=== PATIENT | female | born 1995 | race Caucasian/White ===

== ENCOUNTER 2017-04-27 06:57 | Emergency (ER) | payer OTHER ==
[~2017-04-27] VITALS: Ht 162.6 cm; Wt 62.7 kg
[2017-04-27 06:59] VITALS: Ht 162.6 cm; Wt 62.7 kg
[2017-04-27] MEDS ORDERED: BCPILLS PO (07:11)
[2017-04-27] MEDS ORDERED: MoRPHine SULFATE 4 MG/ML 1 ML CARP\\VIAL IV STA (07:25)
[2017-04-27] MEDS ORDERED: SODIUM CHLORIDE 0.9% 1000ML 1,000 ML IV STA (07:25)
--- NOTE | 2017-04-27 07:46 | EMERGENCY ROOM VISIT NOTE ---
History First contact with patient: 07:04 Chief Complaint: ABDOMINAL PAIN Stated Complaint: HEAVY BLOOD FLOW, SEVERE STOMACH PAIN, BODY PAIN History of Present Illness The patient is a 21 year old female who presents to the Emergency Room with complaints of abdominal cramping and heavy vaginal bleeding. She has a history of PCO as and states that she has had this problem in the past that was usually rectified by taking oral contraceptives. She states that she had been off of her oral contraceptives for about 9 months, but started to have abnormal bleeding in January, so after discussing with her on site property manager back home and she has restarted the oral contraceptives. She states she was initially doing well but about a week ago she began to have breakthrough bleeding. 3 days ago she began to have some lower abdominal cramping which has gotten progressively worse and she has had some heavy bleeding since yesterday. She has not discussed this with her on site property manager. She states she is scheduled to establish care with a new provider in this area, but does not have an appointment until June 21. She denies any fevers or chills, vomiting, back pain, diarrhea, dysuria or urinary frequency. She states she is sexually active, but is not concerned for sexual transmitted infections and denies . Review of Systems A complete 10 point review of systems was reviewed with the patient with pertinent positives and negatives as per history of present illness. All else were negative. Past Medical/Surgical History PCOS, iron deficiency anemia Social History Smoking Status: Never Smoker Alcohol Use: occasionally Drug Use: none Occupation Status: [email or web address] student Current/Historical Medications Scheduled Control Pills ( Control Pills), 1 TAB PO DAILY Naproxen (Naprosyn), 500 MG PO BID Allergies NKDA Physical Exam Vital Signs Date Time Temp Pulse Resp B/P (MAP) Pulse Ox O2 Delivery O2 Flow Rate FiO2 04/27/17 13:31 65 18 106/72 04/27/17 13:08 69 16 103/68 04/27/17 11:14 67 16 104/69 97 Room Air 04/27/17 09:24 99 18 103/58 100 Room Air 04/27/17 07:54 37.2 69 18 121/90 04/27/17 06:59 36.7 98 18 124/85 97 Room Air Physical Exam CONSTITUTIONAL: No acute distress. Well hydrated. Well appearing and well nourished. Alert and oriented X 4 with normal affect. No pallor. HEENT: Normocephalic, atraumatic. Pupils equal, round and reactive to light, EOMI. TMs normal. Pharynx normal. Moist mucous membranes. NECK: Supple, full active range of motion without discomfort. RESPIRATORY: Clear to auscultation bilaterally with no wheezing, crackles, rhonchi or stridor. Equal expansion bilaterally. CARDIOVASCULAR: Regular rate and rhythm with no murmurs, rubs or gallops. Normal peripheral perfusion. No edema. GASTROINTESTINAL: Diffusely tender in the bilateral lower quadrants and suprapubic region, no rebound tenderness or guarding. Soft, nondistended. Bowel sounds present in all quadrants. MUSCULOSKELETAL: Full range of motion of all joints without discomfort. INTEGUMENTARY: No rash or other significant dermatologic conditions noted. NEUROLOGIC: Cranial nerves II-XII grossly intact. No focal neurologic deficits noted. Medical Decision & Procedures ER Provider Diagnostic Interpretation: PELVIC COMPLETE NON OB HISTORY: 21 years-old Female , acute left-sided pelvic pain. Initial exam. COMPARISON: None available. TECHNIQUE: Multiple real-time sonographic images of the pelvic structures were obtained transabdominally and transvaginally assessing grayscale appearance, color and spectral flow. FINDINGS: TRANSABDOMINAL: Anteflexed uterus is seen, 6.1 x 2.5 x 3.6 cm. Urinary bladder appears collapsed. TRANSVAGINAL: Endometrium is seen, 1.4 cm and appears mildly heterogeneous. No intrarenal mass lesion identified. No significant free pelvic fluid. Right ovary measures 2.9 x 1.7 x 1.6 cm and is unremarkable with arterial inflow documented. Left ovary measures 2.4 x 1.8 x 1.4 cm with arterial inflow documented. IMPRESSION: 1. Normal sonographic appearance of the ovaries without evidence of torsion. 2. Mildly heterogeneous appearance of the endometrium, may reflect hemorrhagic debris. 3. Uterus is otherwise unremarkable. Laboratory Results 04/27/17 07:48 Red Blood Count 4.22, Mean Corpuscular Volume 84.1, Mean Corpuscular Hemoglobin 28.7, Mean Corpuscular Hemoglobin Concent 34.1, Mean Platelet Volume 9.4, Neutrophils (%) (Auto) 58.2, Lymphocytes (%) (Auto) 30.7, Monocytes (%) (Auto) 7.5, Eosinophils (%) (Auto) 2.5, Basophils (%) (Auto) 1.0, Neutrophils # (Auto) 4.25, Lymphocytes # (Auto) 2.24, Monocytes # (Auto) 0.55, Eosinophils # (Auto) 0.18, Basophils # (Auto) 0.07 04/27/17 07:48 Test 04/27/17 07:48 04/27/17 08:59 04/27/17 13:10 White Blood Count 7.30 K/uL (4.8-10.8) Red Blood Count 4.22 M/uL (4.2-5.4) Hemoglobin 12.1 g/dL (12.0-16.0) Hematocrit 35.5 % (37-47) Mean Corpuscular Volume 84.1 fL (80-100) Mean Corpuscular Hemoglobin 28.7 pg (25-34) Mean Corpuscular Hemoglobin Concent 34.1 g/dl (32-36) Platelet Count 410 K/uL (130-400) Mean Platelet Volume 9.4 fL (7.4-10.4) Neutrophils (%) (Auto) 58.2 % Lymphocytes (%) (Auto) 30.7 % Monocytes (%) (Auto) 7.5 % Eosinophils (%) (Auto) 2.5 % Basophils (%) (Auto) 1.0 % Neutrophils # (Auto) 4.25 K/uL (1.4-6.5) Lymphocytes # (Auto) 2.24 K/uL (1.2-3.4) Monocytes # (Auto) 0.55 K/uL (0.11-0.59) Eosinophils # (Auto) 0.18 K/uL (0-0.5) Basophils # (Auto) 0.07 K/uL (0-0.2) RDW Standard Deviation 40.8 fL (36.4-46.3) RDW Coefficient of Variation 13.4 % (11.5-14.5) Immature Granulocyte % (Auto) 0.1 % Immature Granulocyte # (Auto) 0.01 K/uL (0.00-0.02) Anion Gap 7.0 mmol/L (3-11) Est Creatinine Clear Calc Drug Dose 142.2 ml/min Estimated GFR () > 150.0 Estimated GFR (Non- 136.0 BUN/Creatinine Ratio 17.6 (10-20) Calcium Level 9.3 mg/dl (8.5-10.1) Total Bilirubin 0.3 mg/dl (0.2-1) Direct Bilirubin 0.1 mg/dl (0-0.2) Aspartate Amino Transf (AST/SGOT) 16 U/L (15-37) Alanine Aminotransferase (ALT/SGPT) 21 U/L (12-78) Alkaline Phosphatase 65 U/L (45-117) Total Protein 8.2 gm/dl (6.4-8.2) Albumin 3.8 gm/dl (3.4-5.0) Lipase 124 U/L (73-393) Urine Color YELLOW Urine Appearance CLEAR (CLEAR) Urine pH 7.5 (4.5-7.5) Urine Specific [place] 1.011 (1.000-1.030) Urine Protein NEG (NEG) Urine Glucose (UA) NEG (NEG) Urine Ketones NEG (NEG) Urine Occult Blood 2+ (NEG) Urine Nitrite NEG (NEG) Urine Bilirubin NEG (NEG) Urine Urobilinogen NEG (NEG) Urine Leukocyte Esterase NEG (NEG) Urine WBC (Auto) 1-5 /hpf (0-5) Urine RBC (Auto) 0-4 /hpf (0-4) Urine Hyaline Casts (Auto) 0 /lpf (0-5) Urine Epithelial Cells (Auto) 20-30 /lpf (0-5) Urine Bacteria (Auto) NEG (NEG) Urine Test NEG (NEG) Medications Administered Medications (Trade) Dose Ordered Sig/Evi Route Start Time Stop Time Status Last Admin Dose Admin Sodium Chloride 1,000 ml @ 999 mls/hr Q1H1M STAT IV 04/27/17 07:25 04/27/17 08:25 DC 04/27/17 07:51 999 MLS/HR Morphine Sulfate (MoRPHine SULFATE INJ) 4 mg NOW STAT IV 04/27/17 07:25 04/27/17 07:30 DC 04/27/17 07:51 4 MG Acetaminophen 100 ml @ 400 mls/hr NOW STAT IV 04/27/17 10:04 04/27/17 10:18 DC 04/27/17 10:14 400 MLS/HR Ketorolac Tromethamine (Toradol Inj) 15 mg NOW STAT IV 04/27/17 12:49 04/27/17 12:50 DC 04/27/17 13:14 15 MG Medical Decision CC: Patient presenting with complaint of vaginal bleeding and abdominal pain Interpretation of Labs: No leukocytosis, no anemia, no significant electrolyte abnormalities, normal renal function, normal liver enzymes and lipase, UA positive for blood, negative for infection. Negative urine . Differential Diagnosis: Includes, but not limited to abnormal vaginal bleeding, ovarian torsion, cyst, PCOS flare, anemia, ectopic , among others. Medication Reconciliation: I attest that I have personally reviewed the patient' s current medication list. Vital signs review: I reviewed the patient's vital signs and interpret them as follows: T: Afebrile; BP: Normotensive; HR: WNL; RR: WNL; Pulse Ox: WNL on RA. Blood pressure screening: The patient was found to have normal blood pressure on screening and does not require follow-up for repeat blood pressure check. Summary: Patient was evaluated at bedside, history of physical exam performed. Patient is alert and in no acute distress, resting calmly in the stretcher. The lower abdomen is diffusely tender to palpation. Small amount of blood noted within the vaginal vault on pelvic exam, no cervical motion tenderness, adnexal tenderness, or pelvic fullness. Orders were placed at bedside for labs, UA and urine , IV fluid bolus and IV morphine for pain, pelvic ultrasound to evaluate for ovarian cyst versus torsion. Patient discussed with Dr. Rosenthal, who agrees with my assessment and plan. Labs reviewed as above, no acute abnormalities. She is not . Ultrasound reviewed, no acute findings. Patient was given IV Toradol for her pain with good improvement. Patient was instructed to continue her oral contraceptives as prescribed and to touch base with her on site property manager for further recommendations. She was also encouraged to follow up with [facility], she verbalized understanding. Patient was discharged home in stable condition and ambulatory. Impression Primary Impression: DUB (dysfunctional uterine bleeding) Departure Information Dispostion Home / Self-Care Condition GOOD Prescriptions Naproxen (Naprosyn) 500 Mg Tab 500 MG PO BID for 30 Days, #60 TAB Prov: Carolynn Kim CRNP 04/27/17 Referrals No Doctor, Assigned (PCP) [facility] Patient Instructions ED Bleed Irregular Vaginal, My [facility] Additional Instructions Please follow-up with a on site property manager regarding your abnormal bleeding. You may call [facility] to set up an appointment. Continue taking your control pills as prescribed. Take these at the same time every day to minimize fluctuation and drug level. Take the Naprosyn twice a day as needed for cramps and abdominal pain. You may also apply a heating pad to your abdomen for comfort. Please return to the ER for worsening symptoms, including severe abdominal or back pain, persistent heavy bleeding (soaking through 2 or more pads/tampons per hour), fever/chills, shortness of breath, severe dizziness or passing out, or any other concerns. School Instructions Return To School: 2 days
[2017-04-27 07:54] VITALS: TEMP 37.2
[2017-04-27 08:16] LABS: BASO ABS # 0.07 K/uL (0-0.2); COMPLETE YES; EOS % 2.5 %; HEMATOCRIT 35.5 % (37-47); IG% 0.1 %; LYMPH % 30.7 %; LYMPH ABS # 2.24 K/uL (1.2-3.4); MEAN CELL VOLUME 84.1 fL (80-100); MEAN CORPUSCULAR HEMOGLOBIN 28.7 pg (25-34); MEAN CORPUSCULAR HGB CONC 34.1 g/dl (32-36); MEAN PLATELET VOLUME 9.4 fL (7.4-10.4); MONO % 7.5 %; NEUT % 58.2 %; PLATELET COUNT 410 K/uL (130-400); RED BLOOD COUNT 4.22 M/uL (4.2-5.4)
[2017-04-27 08:32] LABS: ALT/SGPT 21 U/L (12-78); BLOOD UREA NITROGEN 10 mg/dl (7-18); BUN/CREATININE RATIO 17.6 (10-20); CALCIUM 9.3 mg/dl (8.5-10.1); CARBON DIOXIDE 23 mmol/L (21-32); CHLORIDE 110 mmol/L (98-107); CREATININE 0.55 mg/dl (0.60-1.20); GLUCOSE 90 mg/dl (70-99); SODIUM 140 mmol/L (136-145)
[2017-04-27 08:35] LABS: ALKALINE PHOSPHATASE 65 U/L (45-117); AST/SGOT 16 U/L (15-37)
[2017-04-27 09:15] LABS: URINE APPEARANCE CLEAR (CLEAR); URINE BILIRUBIN NEG (NEG); URINE COLOR YELLOW; URINE EPITHELIAL CELL AUTO 20-30 /lpf (0-5); URINE NITRITE NEG (NEG); URINE PH 7.5 (4.5-7.5); URINE SPECIFIC GRAVITY 1.011 (1.000-1.030); UROBILINOGEN NEG (NEG); ZZUR CULT IF INDIC CLEAN CATCH NO
[2017-04-27 09:18] LABS: PREG INTERNAL NEGATIVE QC NEG CLEAR BACKGROUND; PREG INTERNAL POSITIVE QC POS CONTROL LINE
[2017-04-27 09:20] LABS: MANUAL MICROSCOPIC REQUIRED? NO; REVIEW REQ? NO
[2017-04-27] MEDS ORDERED: ACETAMINOPHEN IV 100 ML IV STA (10:04)
[2017-04-27 11:14] VITALS: O2SAT 97
--- NOTE | 2017-04-27 12:15 | DIAGNOSTIC IMAGING REPORT ---
PELVIC COMPLETE NON OB HISTORY: 21 years-old Female , acute left-sided pelvic pain. Initial exam. COMPARISON: None available. TECHNIQUE: Multiple real-time sonographic images of the pelvic structures were obtained transabdominally and transvaginally assessing grayscale appearance, color and spectral flow. FINDINGS: TRANSABDOMINAL: Anteflexed uterus is seen, 6.1 x 2.5 x 3.6 cm. Urinary bladder appears collapsed. TRANSVAGINAL: Endometrium is seen, 1.4 cm and appears mildly heterogeneous. No intrarenal mass lesion identified. No significant free pelvic fluid. Right ovary measures 2.9 x 1.7 x 1.6 cm and is unremarkable with arterial inflow documented. Left ovary measures 2.4 x 1.8 x 1.4 cm with arterial inflow documented. IMPRESSION: 1. Normal sonographic appearance of the ovaries without evidence of torsion. 2. Mildly heterogeneous appearance of the endometrium, may reflect hemorrhagic debris. 3. Uterus is otherwise unremarkable. The above report was generated using voice recognition software. It may contain grammatical, syntax or spelling errors. Electronically signed by: Shin Cotton M.D. 04/27/2017 12:13 PM Dictated Date/Time: 04/27/2017 12:06 PM
[2017-04-27] MEDS ORDERED: KETOROLAC TROMETHAMINE 30 MG/ML VIAL IV STA (12:49)
[2017-04-27] MEDS ORDERED: NAPR-1169 PO (13:17)
[2017-04-27 13:31] VITALS: BP 106/72; PULSE 65
[2017-04-29 00:09] LABS: CHLAMYDIA TRACH RNA*** NOT DETECTED (NOT DETECTED); GC (NEIS GONORRHOEAE)RNA** NOT DETECTED (NOT DETECTED)
== END 2017-04-27 13:25 | disposition home or self-care (01) ==
LOC: C.EDB 06:58
DX: N93.8 Other specified abnormal uterine and vaginal bleeding (principal); E28.2 Polycystic ovarian syndrome; D50.9 Iron deficiency anemia, unspecified; Z79.3 Long term (current) use of hormonal contraceptives

== ENCOUNTER → 2017-05-10 | Outpatient (CLI) | payer OTHER ==
[~2017-05-10] MED LIST: BCPILLS PO; NAPR-1169 PO
--- NOTE | 2017-05-10 10:32 | DIAGNOSTIC IMAGING REPORT ---
ABDOMINAL ULTRASOUND, RIGHT UPPER QUADRANT HISTORY: Right upper quadrant pain, nausea and vomiting. COMPARISON: None. FINDINGS: The liver morphology is normal. Note is made of a 1 cm echogenic right hepatic lobe lesion which likely reflects a hemangioma. There is no biliary ductal dilatation. Common bile duct measures 3 mm in caliber. The gallbladder is normal. There are no gallstones. The pancreas is within normal limits by sonography. There is no right hydronephrosis. IMPRESSION: 1. No gallstones or biliary ductal dilatation. 2. 1 cm echogenic right hepatic lobe lesion which likely reflects a hemangioma. Electronically signed by: Forest Brewster M.D. 05/10/2017 10:30 AM Dictated Date/Time: 05/10/2017 10:29 AM
== END | disposition home or self-care (01) ==
LOC: C.ULTR 10:02
PROVIDERS: ATTEND Internal Medicine
DX: R10.2 Pelvic and perineal pain (principal); R11.2 Nausea with vomiting, unspecified; K76.9 Liver disease, unspecified

== ENCOUNTER → 2017-08-12 | Day surgery (SDC) | payer OTHER ==
[~2017-08-12] VITALS: Ht 162.6 cm; Wt 62.7 kg
[~2017-08-12] MED LIST changes: +ACET-1256 PO; +LIDOCAINE HCL 2% 2 ML VIAL (20MG/ML) ONE; -NAPR-1169 PO; +PROPOFOL IV EMULSION 10 MG/ML 20 ML VIAL IV ONE; +SODIUM CHLORIDE 0.9% 500ML 500 ML IV ONE; +TAMS0.4C38 PO; +TRAM-10 PO; +TRAM-453 PO
[2017-08-12 12:23] VITALS: Ht 162.6 cm; Wt 62.7 kg
--- NOTE | 2017-08-12 12:46 | Endo History and Physical ---
History & Physical Date of Service: Aug 12, 2017. Chief Complaint: abdominal pain,ulcer of ileum Referring Physician: Dr. Diann Brewster History of Present Illness 22 yo female who presents for colonoscopy secondary to abdominal pain and ulcer of the ileum. Past Surgical History Hx Cardiac Surgery: No Hx Internal Defibrillator: No Hx Pacemaker: No Hx Abdominal Surgery: No Hx of Implantable Prosthesis: No Hx Post-Op Nausea and Vomiting: No Hx Cancer Surgery: No Hx Thoracic Surgery: No Hx Orthopedic: No Hx Urinary Tract Surgery: No Family History None Social History Smoking Status: Never Smoker Hx Substance Use: No Hx Alcohol Use: No Allergies Coded Allergies: No Known Allergies (Verified , 08/12/17) Current Medications Reported Home Medications Medications Dose Route/Sig Max Daily Dose Days Date Category Control Pills (Miscellaneous) Tab 1 Tab PO DAILY 04/27/17 Reported Vital Signs Weight (Kilograms): 62.73 Height (Feet): 5 Height (Inches): 4 Date Time Temp Pulse Resp B/P (MAP) Pulse Ox O2 Delivery O2 Flow Rate FiO2 08/12/17 12:36 36.6 85 16 106/67 (80) 98 Room Air Physical Exam General Appearance: WD/WN, no apparent distress Respiratory/Chest: Auscultation: breath sounds normal Cardiovascular: Heart Auscultation: RRR Abdomen: Bowel Sounds: normal Inspection & Palpation: soft, non-distended, no tenderness, guarding & rebound Assessment and Plan Assessment: 22 yo female who presents for colonoscopy secondary to abdominal pain and ulcer of the ileum. Plan: Proceed with colonoscopy.
--- NOTE | 2017-08-12 13:15 | Discharge Instructions ---
Endoscopy Patient Instructions Date / Procedure(s) Performed Aug 12, 2017. Colonoscopy Allergy Information Coded Allergies: No Known Allergies (Verified , 08/12/17) Discharge Date / Findings Aug 12, 2017. Incomplete colonoscopy secondary to large amount of solid stool in Sigmoid colon and rectum Medication Instructions OK to resume all medications today as prescribed Reported Home Medications Medications Dose Route/Sig Max Daily Dose Days Date Category Control Pills (Miscellaneous) Tab 1 Tab PO DAILY 04/27/17 Reported Provider Instructions Activity Restrictions - No exercising or heavy lifting for 24 hours. - Do not drink alcohol the day of the procedure. - Do not drive a car or operate machinery until the day after the procedure. - Do not make any important decisions or sign important papers in 24 hours after the procedure. Following Day: - Return to full activity which may include returning to work/school. Diet Start your diet with liquids and light foods (jello, soup, juice, toast). Then eat your usual diet if not nauseated. Treatment For Common After Affects For mild abdominal pain, bloating, or excessive gas: - Rest - Eat lightly - Lie on right side Follow-Up Information Follow-up with Dr. Diann Brewster as scheduled Anesthesia Information What You Should Know You have had a procedure that required some medicine to reduce anxiety and discomfort. This treatment is called moderate sedation. After receiving the treatment, you may be sleepy, but you will be able to breathe on your own. The effects of the treatment may last for several hours. Follow these instructions along with Activity/Diet recommendations noted above: * Do NOT do anything where dizziness or clumsiness would be dangerous. * Rest quietly at home today, then you can be up and about tomorrow. * Have a responsible person stay with you the rest of today. * You may have had an I.V. today. If so, you may take the dressing off later today. Recommendations Call your doctor if: * Trouble breathing * Continuous vomiting for more than 24 hours * Temperature above 101 degrees * Severe abdominal pain or bloating * Pain not relieved by pain medicine ordered * There is increased drainage or redness from any incision * A large amount of rectal bleeding greater than 2-3 tablespoons. (If you had a polyp/s removed or have hemorrhoids, a small amount of blood - from the rectum is to be expected.) * You have any unanswered questions or concerns. IN THE EVENT OF A SERIOUS EMERGENCY, GO TO THE NEAREST EMERGENCY ROOM Your discharge instructions were prepared by provider Jaswinder Oviedo. Patient Instructions Signature Page Meredith Willoughby Patient (or Guardian) Signature/Date: I have read and understand the instructions given to me by my caregivers. Caregiver/RN/Doctor Signature/Date: The above-named patient and/or guardian has received patient instructions on this date. + Original Patient Signature Page (only) stays with chart. Please make copy for patient.
--- NOTE | 2017-08-12 13:18 | GI REPORT ---
Procedure Date: 08/12/2017 1:02 PM Procedure: Colonoscopy Indications: Generalized abdominal pain, Ulcers of terminal ileum Medicines: Monitored Anesthesia Care Complications: No immediate complications. Estimated Blood Loss: Estimated blood loss: none. Procedure: Pre-Anesthesia Assessment: - Prior to the procedure, a History and Physical was performed, and patient medications and allergies were reviewed. The patient's tolerance of previous anesthesia was also reviewed. The risks and benefits of the procedure and the sedation options and risks were discussed with the patient. All questions were answered, and informed consent was obtained. Prior Anticoagulants: The patient has taken no previous anticoagulant or antiplatelet agents. ASA Grade Assessment: II - A patient with mild systemic disease. After reviewing the risks and benefits, the patient was deemed in satisfactory condition to undergo the procedure. After I obtained informed consent, the scope was passed under direct vision. Throughout the procedure, the patient's blood pressure, pulse, and oxygen saturations were monitored continuously. The scope was introduced through the anus with the intention of advancing to the ileum. The scope was advanced to the sigmoid colon before the procedure was aborted. Medications were given. The colonoscopy was performed without difficulty. The patient tolerated the procedure well. The quality of the bowel preparation was unsatisfactory. No anatomical landmarks were photographed. Findings: The perianal and digital rectal examinations were normal. A large amount of solid stool was found in the rectum and in the sigmoid colon, precluding visualization. Impression: - Preparation of the colon was unsatisfactory. - Stool in the rectum and in the sigmoid colon. - No specimens collected. Recommendation: - Resume previous diet. - Continue present medications. - Repeat colonoscopy in 3 months because the bowel preparation was poor. - Return to primary care physician as previously scheduled. Jaswinder Oviedo DO 08/12/2017 1:17:40 PM This report has been signed electronically. Note Initiated On: 08/12/2017 1:02 PM I attest to the content of the Intraoperative Record and orders documented therein, exceptions below
--- NOTE | 2017-08-12 13:36 | Anesthesiology Progress Note ---
Anesthesia Post Op Note Date & Time Aug 12, 2017 at 13:36 Vital Signs Pain Intensity: 8.5 Vital Signs Past 12 Hours Date Time Temp Pulse Resp B/P (MAP) Pulse Ox O2 Delivery O2 Flow Rate FiO2 08/12/17 13:17 104 18 93/56 (68) 99 Room Air 08/12/17 12:36 36.6 85 16 106/67 (80) 98 Room Air Notes Mental Status: alert / awake / arousable, participated in evaluation Pt Amnestic to Procedure: Yes Nausea / Vomiting: adequately controlled Pain: adequately controlled Airway Patency, RR, SpO2: stable & adequate BP & HR: stable & adequate Hydration State: stable & adequate Anesthetic Complications: no major complications apparent
[2017-08-12 13:45] VITALS: BP 107/78; PULSE 90; O2SAT 99
== END | disposition home or self-care (01) ==
LOC: C.GI 12:06
PROVIDERS: ATTEND Internal Medicine
DX: R52 Pain, unspecified (principal); K63.3 Ulcer of intestine; Z79.3 Long term (current) use of hormonal contraceptives

== ENCOUNTER 2017-09-22 15:52 | Emergency (ER) | payer OTHER ==
[~2017-09-22] VITALS: Ht 154.9 cm; Wt 63.7 kg
[~2017-09-22 15:52] MED LIST changes: -ACET-1256 PO; -BCPILLS PO; -LIDOCAINE HCL 2% 2 ML VIAL (20MG/ML) ONE; -PROPOFOL IV EMULSION 10 MG/ML 20 ML VIAL IV ONE; -SODIUM CHLORIDE 0.9% 500ML 500 ML IV ONE; -TAMS0.4C38 PO; -TRAM-453 PO
[2017-09-22 15:55] VITALS: TEMP 36.4; Ht 154.9 cm; Wt 63.7 kg
[2017-09-22] MEDS ORDERED: MoRPHine SULFATE 4 MG/ML 1 ML CARP\\VIAL IV STA (17:10)
[2017-09-22] MEDS ORDERED: KETOROLAC TROMETHAMINE 30 MG/ML VIAL IV STA (17:10)
[2017-09-22] MEDS ORDERED: ACETAMINOPHEN 500 MG TAB PO STA (17:10)
[2017-09-22] MEDS ORDERED: OPTIRAY 320 IV PRN (17:15)
--- NOTE | 2017-09-22 17:16 | EMERGENCY ROOM VISIT NOTE ---
History Report prepared by Darion: Bambi Molina Under the Supervision of: Dr. Marcio Macdonald M.D. First contact with patient: 17:00 Chief Complaint: ABDOMINAL PAIN Stated Complaint: ABDOMINAL PAIN- REFERRED Nursing Triage Summary: RLQ pain, worsening. Nausea. History of Present Illness The patient is a 22 year old [place] female with no past medical history who presents to the ED with a cc of worsening right sided abdominal pain beginning 4 days ago. The patient states that she has been having this pain intermittently for the past few months and describes it as a sharp pain. She states that she has had multiple tests that were negative She reports that she was seen at a clinic today and sent to the ED. The patient notes that it is worse with eating. She reports that she took Tylenol with no relief. She notes her LNMP was 3 weeks ago. Positive nausea and vomiting two days ago. Negative use of alcohol, use of tobacco, recent falls/injuries, rib pain, hematuria, and urinary symptoms. Per results sent with the patient, she had a negative urine at the clinic. Source of History: patient Onset: 4 days ago Position: abdomen (right sided) Quality: sharp Timing: worsening Modifying Factors (Worsening): eating Associated Symptoms: + nausea, + vomiting, No urinary symptoms Note: The patient denies hematuria. Review of Systems See HPI for pertinent positives and negatives. A total of ten systems were reviewed and were otherwise negative. Past Medical & Surgical Medical Problems: (1) No Known Active Medical Problems Family History Patient reports no known family medical history. Social History Smoking Status: Never Smoker Alcohol Use: none Drug Use: none Marital Status: single Housing Status: lives with roommate Occupation Status: [employer] student Current/Historical Medications Scheduled Tamsulosin Hcl (Flomax), 0.4 MG PO DAILY Tramadol Hcl (Ultram), 50 MG PO Q8H Scheduled PRN Acetaminophen (Tylenol), 1,000 MG PO Q6 PRN for Pain or Fever Allergies Coded Allergies: No Known Allergies (Verified , 08/30/17) Physical Exam Vital Signs Date Time Temp Pulse Resp B/P (MAP) Pulse Ox O2 Delivery O2 Flow Rate FiO2 09/22/17 20:36 68 22 119/84 100 Room Air 09/22/17 19:50 75 21 122/83 99 Room Air 09/22/17 17:49 75 20 108/70 99 Room Air 09/22/17 17:33 71 09/22/17 15:55 36.4 79 17 118/74 97 Room Air Physical Exam GENERAL: Awake, alert, well-appearing, NAD HENT: Normocephalic, atraumatic. EYES: Normal conjunctiva. Sclera non-icteric. NECK: Supple. No nuchal rigidity. FROM. RESPIRATORY: CTAB, no rhonchi, wheezing, crackles CARDIAC: RRR, no MRG ABDOMEN: Soft, nondistended, BS+, right flank and right upper quadrant TTP. Negative obturators. Negative psoas. MSK: No chest wall TTP, no LE edema, no rib pain NEURO: GCS 15, CN 2-12 intact, moves all 4s on command SKIN: No rash or jaundice noted. Medical Decision & Procedures ER Provider Diagnostic Interpretation: Radiology results as stated below per my review and radiologist interpretation: CT OF THE ABDOMEN AND PELVIS WITH CONTRAST CLINICAL HISTORY: Right lower quadrant abdominal pain. COMPARISON STUDY: Pelvic ultrasound April 27, 2017 and right upper quadrant ultrasound May 10, 2017. TECHNIQUE: Following IV administration of 93 mL of Optiray-320, axial images of the abdomen and pelvis were obtained from the lung bases to the proximal femurs. Images were reviewed in the axial, sagittal, and coronal planes. IV contrast was administered without complication. A dose lowering technique was utilized adhering to the principles of ALARA. CT DOSE: 390.30 mGy.cm FINDINGS: A 1 cm hypodense right hepatic lobe lesion with mild nodular enhancement corresponds to an echogenic lesion on ultrasound of May 10, 2017. This represent a hemangioma. The spleen, adrenal glands and pancreas are normal. No hydronephrosis. A 4 mm radiodensity within the inferior right collecting system likely reflects a stone. There are a few additional smaller stones. Excreted contrast could appear similar although is considered less likely. There are no ureteral calculi. Caliber and wall thickness of small and large bowel are normal. A tampon is in place. There is sigmoid diverticulosis without evidence for acute diverticulitis. The appendix is normal. There is no lymphadenopathy or ascites. The ovaries are not enlarged. There are no suspicious osseous lesions. IMPRESSION: 1. No acute process within the abdomen or pelvis. Normal appendix. 2. Suspected nonobstructing bilateral renal calculi, including a 4 mm right renal calculus. Excreted contrast could appear similar although is considered less likely. No ureteral calculi or hydronephrosis. Electronically signed by: Forest Brewster M.D. 09/22/2017 6:54 PM Dictated Date/Time: 09/22/2017 6:44 PM CHEST ONE VIEW PORTABLE CLINICAL HISTORY: Abdominal pain. COMPARISON STUDY: No previous studies for comparison. FINDINGS: Lung volumes are normal. No pneumothorax or pleural effusion is noted. Pulmonary vascularity is normal. Cardiac size is normal. Mediastinal contours are normal. Possible minimal right lower lung opacity is probably artifactual. There is no lucency under the hemidiaphragms to suggest pneumoperitoneum on this exam. IMPRESSION: No acute cardiopulmonary findings. Electronically signed by: Forest Brewster M.D. 09/22/2017 5:47 PM Dictated Date/Time: 09/22/2017 5:47 PM Laboratory Results 09/22/17 17:16 Red Blood Count 4.50, Mean Corpuscular Volume 85.6, Mean Corpuscular Hemoglobin 28.2, Mean Corpuscular Hemoglobin Concent 33.0, Mean Platelet Volume 9.3, Neutrophils (%) (Auto) 42.8, Lymphocytes (%) (Auto) 45.0, Monocytes (%) (Auto) 7.9, Eosinophils (%) (Auto) 3.6, Basophils (%) (Auto) 0.6, Neutrophils # (Auto) 3.60, Lymphocytes # (Auto) 3.78, Monocytes # (Auto) 0.66, Eosinophils # (Auto) 0.30, Basophils # (Auto) 0.05 09/22/17 17:16 Test 09/22/17 17:16 White Blood Count 8.40 K/uL (4.8-10.8) Red Blood Count 4.50 M/uL (4.2-5.4) Hemoglobin 12.7 g/dL (12.0-16.0) Hematocrit 38.5 % (37-47) Mean Corpuscular Volume 85.6 fL (80-100) Mean Corpuscular Hemoglobin 28.2 pg (25-34) Mean Corpuscular Hemoglobin Concent 33.0 g/dl (32-36) Platelet Count 447 K/uL (130-400) Mean Platelet Volume 9.3 fL (7.4-10.4) Neutrophils (%) (Auto) 42.8 % Lymphocytes (%) (Auto) 45.0 % Monocytes (%) (Auto) 7.9 % Eosinophils (%) (Auto) 3.6 % Basophils (%) (Auto) 0.6 % Neutrophils # (Auto) 3.60 K/uL (1.4-6.5) Lymphocytes # (Auto) 3.78 K/uL (1.2-3.4) Monocytes # (Auto) 0.66 K/uL (0.11-0.59) Eosinophils # (Auto) 0.30 K/uL (0-0.5) Basophils # (Auto) 0.05 K/uL (0-0.2) RDW Standard Deviation 40.2 fL (36.4-46.3) RDW Coefficient of Variation 12.7 % (11.5-14.5) Immature Granulocyte % (Auto) 0.1 % Immature Granulocyte # (Auto) 0.01 K/uL (0.00-0.02) Urine Color YELLOW Urine Appearance CLEAR (CLEAR) Urine pH 5.5 (4.5-7.5) Urine Specific [place] 1.028 (1.000-1.030) Urine Protein NEG (NEG) Urine Glucose (UA) NEG (NEG) Urine Ketones 1+ (NEG) Urine Occult Blood NEG (NEG) Urine Nitrite NEG (NEG) Urine Bilirubin NEG (NEG) Urine Urobilinogen NEG (NEG) Urine Leukocyte Esterase NEG (NEG) Anion Gap 7.0 mmol/L (3-11) Est Creatinine Clear Calc Drug Dose 109.6 ml/min Estimated GFR () 144.6 Estimated GFR (Non- 124.7 BUN/Creatinine Ratio 11.9 (10-20) Calcium Level 9.4 mg/dl (8.5-10.1) Total Bilirubin 0.2 mg/dl (0.2-1) Direct Bilirubin < 0.1 mg/dl (0-0.2) Aspartate Amino Transf (AST/SGOT) 14 U/L (15-37) Alanine Aminotransferase (ALT/SGPT) 23 U/L (12-78) Alkaline Phosphatase 72 U/L (45-117) Total Protein 9.0 gm/dl (6.4-8.2) Albumin 4.3 gm/dl (3.4-5.0) Lipase 144 U/L (73-393) Laboratory results reviewed by me Medications Administered Medications (Trade) Dose Ordered Sig/Evi Route Start Time Stop Time Status Last Admin Dose Admin Ketorolac Tromethamine (Toradol Inj) 30 mg NOW STAT IV 09/22/17 17:10 09/22/17 17:12 DC 09/22/17 17:47 30 MG Acetaminophen (Tylenol Tab) 1,000 mg NOW STAT PO 09/22/17 17:10 09/22/17 17:12 DC 09/22/17 17:47 1,000 MG Hydromorphone HCl (Dilaudid Inj) 0.5 mg NOW STAT IV 09/22/17 19:19 09/22/17 19:20 DC 09/22/17 19:52 0.5 MG ED Course 1704: The patient was evaluated in room C10. A complete history and physical exam was performed. 1906: I reevaluated the patient. Discussed results and discharge instructions: She verbalized understanding and agreement. The patient is ready for discharge. Medical Decision The patient is a 22 year old [place] female with no past medical history who presents to the ED with a cc of worsening right sided abdominal pain beginning 4 days ago. Differential diagnosis: Etiologies such as appendicitis, diverticulitis, PUD, biliary pathology, UTI, pancreatitis, obstruction, mesenteric ischemia, aortic pathology, infections, inflammatory bowel disease, renal colic, as well as others were entertained. Patient was seen and evaluated at the bedside. Patient was complaining of some right-sided abdominal pain medicine ongoing for the last 4 days. Patient describes it as sharp and nonradiating. Patient states that this occasionally does worsen with eating. Patient has been seen in the past. Patient was referred to Dr. bush with gastroenterology however he had to abort a colonoscopy as a bowel prep was insufficient. Patient doesn't follow-up appointment with him tomorrow. Patient was seen at [facility] and referred here to rule out possible appendicitis. Exam the patient does have pain out of proportion to palpation. Patient does not have any other risk factors concerning for infarction. Patient did have blood work completed along with CT the abdomen pelvis. Of note the patient did have a negative urine test at [facility]. Patient was also given pain control. Patient was not nauseous. Patient's CT the head and pelvis showed a normal appendix. Did show that she may have a 4 mm nonobstructing stone in the right kidney. Patient's blood work fairly unremarkable. Urinalysis negative for infection or blood. Patient's pain admittedly was not remarkably improved however given her reassuring lab work with a possible reason for her pain I did treat her for possible kidney stone even that was not located in the ureter. 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 All questions were answered. Patient was deemed suitable for outpatient follow-up at this time. Patient agreed with the plan of care and was safely discharged home. The chart was completed utilizing [employer] Speech voice recognition software. Grammatical errors, random word insertions, pronoun errors, and incomplete sentences are an occasional consequence of this system due to software limitations, ambient noise, and hardware issues. Any formal questions or concerns about the content, text, or information contained within the body of this dictation should be directly addressed to the physician for clarification. Medication Reconcilliation Current Medication List: was personally reviewed by me Blood Pressure Screening Patient's blood pressure: Normal blood pressure Blood pressure disposition: Did not require urgent referral Impression Primary Impression: Renal colic on right side Additional Impressions: Nephrolithiasis Hypokalemia Scribe Attestation The scribe's documentation has been prepared under my direction and personally reviewed by me in its entirety. I confirm that the note above accurately reflects all work, treatment, procedures, and medical decision making performed by me. Departure Information Dispostion Home / Self-Care Prescriptions Tramadol Hcl (ULTRAM) 50 Mg Tab 50 MG PO Q8H, #15 TAB PRN PAIN Prov: Marcio Macdonald M.D. 09/22/17 Tamsulosin Hcl (FLOMAX) 0.4 Mg Cap 0.4 MG PO DAILY for 10 Days, #10 CAP Prov: Marcio Macdonald M.D. 09/22/17 Referrals Diann Brewster M.D. (PCP) [facility] Forms HOME CARE DOCUMENTATION FORM, IMPORTANT VISIT INFORMATION Patient Instructions ED Stone Renal W Colic, My [facility] Additional Instructions Please return to the emergency department if you have worsening or recurrent symptoms not amenable to at-home treatment. Please call for a follow-up appointment with her primary care physician. Please take your medications as prescribed. If you have other concerns and/or complaints please feel free to also call your primary care physician's office or return the ED for further evaluation, management, and treatment. You received narcotic or benzodiazepene medication while in the emergency room today. This is an addictive medication that may cause drowziness as well as constipation. Do not drive, operate heavy machinery, or drink alcohol under the influence of this medication. You may take 600 mg Ibuprofen every 6 hours as needed for pain with food for no more than 2 consecutive days. You may take tylenol 1000 mg every 6 hours as needed for pain. You may take motrin and tylenol separately or at the same time. If you still have significant pain you may try the tramadol. Please consider taking the Flomax but in the evening. If you do have persistent discomfort you may benefit from seeing a urologist. Take your medications as prescribed. If taking an antibiotic consider taking a probiotic and/or eating yogurt, but at the least, please take with food as it can cause upset stomach. If culture results are not available at discharge, if they are positive for concern of infection, you will be informed of the results as soon as they are available. If you were seen between 11pm and 7AM all radiology reads will be re-read by our in house staff. If any major discrepancies are discovered, you will be notified. You have been examined and treated today on an emergency basis only. This is not a substitute for, or an effort to provide, complete comprehensive medical care. It is impossible to recognize and treat all injuries or illnesses in a single emergency department visit. It is therefore important that you follow up closely with [facility], your PCP, and/or your specialist(s). Call as soon as possible for an appointment. Thank you for your time and consideration. I look forward to speaking with you again soon. Please don't hesitate to call us if you have any questions. Problem Qualifiers
[2017-09-22] MEDS ORDERED: ACET-1256 PO (17:34)
--- NOTE | 2017-09-22 17:49 | DIAGNOSTIC IMAGING REPORT ---
CHEST ONE VIEW PORTABLE CLINICAL HISTORY: Abdominal pain. COMPARISON STUDY: No previous studies for comparison. FINDINGS: Lung volumes are normal. No pneumothorax or pleural effusion is noted. Pulmonary vascularity is normal. Cardiac size is normal. Mediastinal contours are normal. Possible minimal right lower lung opacity is probably artifactual. There is no lucency under the hemidiaphragms to suggest pneumoperitoneum on this exam. IMPRESSION: No acute cardiopulmonary findings. Electronically signed by: Forest Brewtser M.D. 09/22/2017 5:47 PM Dictated Date/Time: 09/22/2017 5:47 PM
[2017-09-22 17:51] LABS: BASO % 0.6 %; BASO ABS # 0.05 K/uL (0-0.2); EOS % 3.6 %; HEMATOCRIT 38.5 % (37-47); HEMOGLOBIN 12.7 g/dL (12.0-16.0); IG# 0.01 K/uL (0.00-0.02); LYMPH ABS # 3.78 K/uL (1.2-3.4); MEAN CELL VOLUME 85.6 fL (80-100); MEAN CORPUSCULAR HEMOGLOBIN 28.2 pg (25-34); MEAN PLATELET VOLUME 9.3 fL (7.4-10.4); MONO % 7.9 %; MONO ABS # 0.66 K/uL (0.11-0.59); NEUT % 42.8 %; PLATELET COUNT 447 K/uL (130-400); RED CELL DISTRIBUTION WIDTH CV 12.7 % (11.5-14.5); RED CELL DISTRIBUTION WIDTH SD 40.2 fL (36.4-46.3)
[2017-09-22 18:08] LABS: ALBUMIN 4.3 gm/dl (3.4-5.0); ALT/SGPT 23 U/L (12-78); BLOOD UREA NITROGEN 8 mg/dl (7-18); CALCIUM 9.4 mg/dl (8.5-10.1); CARBON DIOXIDE 26 mmol/L (21-32); GLUCOSE 90 mg/dl (70-99); LIPASE 144 U/L (73-393); POTASSIUM 3.4 mmol/L (3.5-5.1); SODIUM 137 mmol/L (136-145)
[2017-09-22 18:11] LABS: ALKALINE PHOSPHATASE 72 U/L (45-117); AST/SGOT 14 U/L (15-37)
--- NOTE | 2017-09-22 18:55 | DIAGNOSTIC IMAGING REPORT ---
CT OF THE ABDOMEN AND PELVIS WITH CONTRAST CLINICAL HISTORY: Right lower quadrant abdominal pain. COMPARISON STUDY: Pelvic ultrasound April 27, 2017 and right upper quadrant ultrasound May 10, 2017. TECHNIQUE: Following IV administration of 93 mL of Optiray-320, axial images of the abdomen and pelvis were obtained from the lung bases to the proximal femurs. Images were reviewed in the axial, sagittal, and coronal planes. IV contrast was administered without complication. A dose lowering technique was utilized adhering to the principles of ALARA. CT DOSE: 390.30 mGy.cm FINDINGS: A 1 cm hypodense right hepatic lobe lesion with mild nodular enhancement corresponds to an echogenic lesion on ultrasound of May 10, 2017. This represent a hemangioma. The spleen, adrenal glands and pancreas are normal. No hydronephrosis. A 4 mm radiodensity within the inferior right collecting system likely reflects a stone. There are a few additional smaller stones. Excreted contrast could appear similar although is considered less likely. There are no ureteral calculi. Caliber and wall thickness of small and large bowel are normal. A tampon is in place. There is sigmoid diverticulosis without evidence for acute diverticulitis. The appendix is normal. There is no lymphadenopathy or ascites. The ovaries are not enlarged. There are no suspicious osseous lesions. IMPRESSION: 1. No acute process within the abdomen or pelvis. Normal appendix. 2. Suspected nonobstructing bilateral renal calculi, including a 4 mm right renal calculus. Excreted contrast could appear similar although is considered less likely. No ureteral calculi or hydronephrosis. Electronically signed by: Forest Brewster M.D. 09/22/2017 6:54 PM Dictated Date/Time: 09/22/2017 6:44 PM
[2017-09-22] MEDS ORDERED: TRAM-453 PO (19:04)
[2017-09-22] MEDS ORDERED: TAMS0.4C38 PO (19:04)
[2017-09-22] MEDS ORDERED: HYDROmorphone INJ 0.5 MG/0.5 ML SYR IV STA (19:19)
[2017-09-22 20:36] VITALS: BP 119/84; PULSE 68; O2SAT 100
== END 2017-09-22 20:37 | disposition home or self-care (01) ==
LOC: C.EDB 15:54 → C.EDC 20:37
DX: N23 Unspecified renal colic (principal); N20.0 Calculus of kidney; E87.6 Hypokalemia

== ENCOUNTER → 2017-10-05 | Day surgery (SDC) | payer OTHER ==
[2017-08-30 15:35] VITALS: Ht 162.6 cm; Wt 62.3 kg
[~2017-10-05] VITALS: Ht 162.6 cm; Wt 62.3 kg
[~2017-10-05] MED LIST changes: +ACET-1256 PO; +LIDOCAINE HCL 2% 2 ML VIAL (20MG/ML) ONE; +MIDAZOLAM HCL 1 MG/ML 2ML VIAL ONE; +PROPOFOL IV EMULSION 10 MG/ML 20 ML VIAL IV ONE; +SODIUM CHLORIDE 0.9% 500ML 500 ML IV ONE; -TRAM-10 PO
--- NOTE | 2017-10-05 13:29 | Endo History and Physical ---
History & Physical Date of Service: Oct 05, 2017. Chief Complaint: Ileal ulcer,abdominal pain Referring Physician: Dr. Diann Brewster History of Present Illness 22 yo female who presents for colonoscopy secondary to ileal ulcer and abdominal pain. Past Surgical History Hx Cardiac Surgery: No Hx Internal Defibrillator: No Hx Pacemaker: No Hx Abdominal Surgery: No Hx Post-Op Nausea and Vomiting: No Hx Cancer Surgery: No Hx Thoracic Surgery: No Hx Orthopedic: No Hx Urinary Tract Surgery: No Family History None Social History Smoking Status: Never Smoker Hx Substance Use: No Hx Alcohol Use: No Allergies Coded Allergies: No Known Allergies (Verified , 08/30/17) Current Medications Reported Home Medications Medications Dose Route/Sig Max Daily Dose Days Date Category Tylenol (Acetaminophen) 500 Mg Tab 1,000 Mg PO Q6 PRN 09/22/17 Reported Vital Signs Weight (Kilograms): 62.27 Height (Feet): 5 Height (Inches): 4 Date Time Temp Pulse Resp B/P (MAP) Pulse Ox O2 Delivery O2 Flow Rate FiO2 10/05/17 13:16 36.6 92 16 112/77 (89) 99 Room Air Physical Exam General Appearance: WD/WN, no apparent distress Respiratory/Chest: Auscultation: breath sounds normal Cardiovascular: Heart Auscultation: RRR Abdomen: Bowel Sounds: normal Inspection & Palpation: soft, non-distended, no tenderness, guarding & rebound Assessment and Plan Assessment: 22 yo female who presents for colonoscopy secondary to ileal ulcer and abdominal pain. Plan: Proceed with colonoscopy.
--- NOTE | 2017-10-05 13:53 | Discharge Instructions ---
Endoscopy Patient Instructions Date / Procedure(s) Performed Oct 05, 2017. Colonoscopy Allergy Information Coded Allergies: No Known Allergies (Verified , 08/30/17) Discharge Date / Findings Oct 05, 2017. Random colon biopsies Medication Instructions OK to resume all medications today as prescribed Reported Home Medications Medications Dose Route/Sig Max Daily Dose Days Date Category Tylenol (Acetaminophen) 500 Mg Tab 1,000 Mg PO Q6 PRN 09/22/17 Reported Provider Instructions Activity Restrictions - No exercising or heavy lifting for 24 hours. - Do not drink alcohol the day of the procedure. - Do not drive a car or operate machinery until the day after the procedure. - Do not make any important decisions or sign important papers in 24 hours after the procedure. Following Day: - Return to full activity which may include returning to work/school. Diet Start your diet with liquids and light foods (jello, soup, juice, toast). Then eat your usual diet if not nauseated. Treatment For Common After Affects For mild abdominal pain, bloating, or excessive gas: - Rest - Eat lightly - Lie on right side Follow-Up Information Follow-up with Dr. Diann Brewster as scheduled Anesthesia Information What You Should Know You have had a procedure that required some medicine to reduce anxiety and discomfort. This treatment is called moderate sedation. After receiving the treatment, you may be sleepy, but you will be able to breathe on your own. The effects of the treatment may last for several hours. Follow these instructions along with Activity/Diet recommendations noted above: * Do NOT do anything where dizziness or clumsiness would be dangerous. * Rest quietly at home today, then you can be up and about tomorrow. * Have a responsible person stay with you the rest of today. * You may have had an I.V. today. If so, you may take the dressing off later today. Recommendations Call your doctor if: * Trouble breathing * Continuous vomiting for more than 24 hours * Temperature above 101 degrees * Severe abdominal pain or bloating * Pain not relieved by pain medicine ordered * There is increased drainage or redness from any incision * A large amount of rectal bleeding greater than 2-3 tablespoons. (If you had a polyp/s removed or have hemorrhoids, a small amount of blood - from the rectum is to be expected.) * You have any unanswered questions or concerns. IN THE EVENT OF A SERIOUS EMERGENCY, GO TO THE NEAREST EMERGENCY ROOM Your discharge instructions were prepared by provider Jaswinder Oviedo. Patient Instructions Signature Page Meredith Willoughby Patient (or Guardian) Signature/Date: I have read and understand the instructions given to me by my caregivers. Caregiver/RN/Doctor Signature/Date: The above-named patient and/or guardian has received patient instructions on this date. + Original Patient Signature Page (only) stays with chart. Please make copy for patient.
[2017-10-05 14:33] VITALS: BP 112/80; PULSE 80; O2SAT 99
--- NOTE | 2017-10-05 15:06 | GI REPORT ---
Procedure Date: 10/05/2017 1:31 PM Procedure: Colonoscopy Indications: Generalized abdominal pain, Ulcers of terminal ileum Medicines: Monitored Anesthesia Care Complications: No immediate complications. Estimated Blood Loss: Estimated blood loss: none. Procedure: Pre-Anesthesia Assessment: - Prior to the procedure, a History and Physical was performed, and patient medications and allergies were reviewed. The patient's tolerance of previous anesthesia was also reviewed. The risks and benefits of the procedure and the sedation options and risks were discussed with the patient. All questions were answered, and informed consent was obtained. Prior Anticoagulants: The patient has taken no previous anticoagulant or antiplatelet agents. ASA Grade Assessment: II - A patient with mild systemic disease. After reviewing the risks and benefits, the patient was deemed in satisfactory condition to undergo the procedure. After I obtained informed consent, the scope was passed under direct vision. Throughout the procedure, the patient's blood pressure, pulse, and oxygen saturations were monitored continuously. The scope was introduced through the anus and advanced to the terminal ileum. The colonoscopy was performed without difficulty. The patient tolerated the procedure well. The quality of the bowel preparation was good. The terminal ileum, ileocecal valve, appendiceal orifice, and rectum were photographed. Findings: The perianal and digital rectal examinations were normal. The colon (entire examined portion) appeared normal. Several random biopsies were obtained with cold forceps for histology. Impression: - The entire examined colon is normal. - Several random biopsies were obtained. Recommendation: - Resume previous diet. - Continue present medications. - Repeat colonoscopy for surveillance based on pathology results. - Return to primary care physician as previously scheduled. Jaswinder Oviedo DO 10/05/2017 3:06:05 PM This report has been signed electronically. Note Initiated On: 10/05/2017 1:31 PM I attest to the content of the Intraoperative Record and orders documented therein, exceptions below
--- NOTE | 2017-10-05 15:20 | Anesthesiology Progress Note ---
Anesthesia Post Op Note Date & Time Oct 05, 2017 at 15:20 Vital Signs Pain Intensity: 0 Vital Signs Past 12 Hours Date Time Temp Pulse Resp B/P (MAP) Pulse Ox O2 Delivery O2 Flow Rate FiO2 10/05/17 14:33 80 20 112/80 (91) 99 Room Air 10/05/17 14:13 77 20 102/66 (78) 99 Room Air 10/05/17 13:57 84 18 96/55 (69) 97 Room Air 10/05/17 13:16 36.6 92 16 112/77 (89) 99 Room Air Notes Mental Status: alert / awake / arousable, participated in evaluation Pt Amnestic to Procedure: Yes Nausea / Vomiting: adequately controlled Pain: adequately controlled Airway Patency, RR, SpO2: stable & adequate BP & HR: stable & adequate Hydration State: stable & adequate Anesthetic Complications: no major complications apparent
== END | disposition home or self-care (01) ==
LOC: C.GI 12:40
PROVIDERS: ATTEND Internal Medicine
DX: R10.84 Generalized abdominal pain (principal); K63.3 Ulcer of intestine

== ENCOUNTER → 2017-10-20 | Outpatient (CLI) | payer OTHER ==
[~2017-10-20] MED LIST changes: -LIDOCAINE HCL 2% 2 ML VIAL (20MG/ML) ONE; -MIDAZOLAM HCL 1 MG/ML 2ML VIAL ONE; -PROPOFOL IV EMULSION 10 MG/ML 20 ML VIAL IV ONE; -SODIUM CHLORIDE 0.9% 500ML 500 ML IV ONE
--- NOTE | 2017-10-20 09:41 | DIAGNOSTIC IMAGING REPORT ---
GI W/AIR SMALL BOWEL ROUTINE CLINICAL HISTORY: R10.31 Right lower quadrant abdominal painR11.0 [id number]. Nausea. COMPARISON STUDY: None FLUOROSCOPY TIME: 3.2 minutes. FINDINGS: Patient initiates swallowing function well. The esophagus is normal in course and caliber. Gastroesophageal junction is normal. Size and configuration stomach are normal. Duodenal bulb fills well. Duodenal sweep is unremarkable. The mucosal pattern and transit time throughout small bowel are unremarkable. Spot films of the terminal ileum are within normal limits. IMPRESSION: Negative study The above report was generated using voice recognition software. It may contain grammatical, syntax or spelling errors. Electronically signed by: Chirag Landin M.D. 10/20/2017 9:40 AM Dictated Date/Time: 10/20/2017 9:39 AM
== END | disposition home or self-care (01) ==
LOC: C.RAD 08:23
PROVIDERS: ATTEND Registered Nurse
DX: R11.0 Nausea (principal); R10.31 Right lower quadrant pain

== ENCOUNTER → 2017-11-04 | Outpatient (CLI) | payer OTHER ==
[~2017-11-04] MED LIST changes: +SINCALIDE INJ 1.27 MCG in SODIUM CHLORIDE 0.9% 100ML 100 ML IV ONE
--- NOTE | 2017-11-04 12:42 | DIAGNOSTIC IMAGING REPORT ---
HEPATOBILIARY EF IMAGING CLINICAL HISTORY: 22 years-old Female presenting with NAUSEA, RLQ PAIN. TECHNIQUE: Dynamic imaging of the gallbladder was initiated 65 minutes after administration of 5.5 mCi of technetium 99m Choletec. Imaging was obtained every 5 minutes over a span of 40 minutes. 1.27 mcg of sincalide was injected 5 minutes prior to the start of imaging. The gallbladder ejection fraction was calculated. COMPARISON: CT from 09/22/2017. FINDINGS: The hepatobiliary scan shows normal filling of the gallbladder at the start of imaging. Expected activity within the bowel also noted. Gallbladder ejection fraction measured at 71% (normal greater than 50%). IMPRESSION: 1. Normal gallbladder ejection fraction. No evidence of chronic cholecystitis. Electronically signed by: Alexandre Braxton M.D. 11/04/2017 12:41 PM Dictated Date/Time: 11/04/2017 12:39 PM
== END | disposition home or self-care (01) ==
LOC: C.NUCL 10:04
PROVIDERS: ATTEND Registered Nurse
DX: R11.0 Nausea (principal); R10.31 Right lower quadrant pain

== ENCOUNTER 2017-11-08 15:40 | Emergency (ER) | payer OTHER ==
[~2017-11-08] VITALS: Ht 162.6 cm; Wt 65.2 kg
[~2017-11-08 15:40] MED LIST changes: -SINCALIDE INJ 1.27 MCG in SODIUM CHLORIDE 0.9% 100ML 100 ML IV ONE
[2017-11-08 15:44] VITALS: TEMP 36.7; Ht 162.6 cm; Wt 65.2 kg
[2017-11-08] MEDS ORDERED: SODIUM CHLORIDE 0.9% 500ML 500 ML IV STA (16:21)
[2017-11-08] MEDS ORDERED: KETOROLAC TROMETHAMINE 30 MG/ML VIAL IV STA (16:21)
[2017-11-08 16:28] LABS: BASO % 0.6 %; BASO ABS # 0.05 K/uL (0-0.2); EOS % 3.3 %; EOS ABS # 0.28 K/uL (0-0.5); HEMATOCRIT 37.7 % (37-47); HEMOGLOBIN 12.7 g/dL (12.0-16.0); IG# 0.01 K/uL (0.00-0.02); LYMPH % 33.9 %; LYMPH ABS # 2.87 K/uL (1.2-3.4); MEAN CORPUSCULAR HGB CONC 33.7 g/dl (32-36); MEAN PLATELET VOLUME 8.7 fL (7.4-10.4); MONO % 7.3 %; MONO ABS # 0.62 K/uL (0.11-0.59); NEUT % 54.8 %; NEUT ABS # 4.64 K/uL (1.4-6.5); PLATELET COUNT 409 K/uL (130-400); RED CELL DISTRIBUTION WIDTH CV 13.3 % (11.5-14.5); RED CELL DISTRIBUTION WIDTH SD 40.1 fL (36.4-46.3); WHITE BLOOD COUNT 8.47 K/uL (4.8-10.8)
[2017-11-08] MEDS ORDERED: ONDANSETRON INJ 2 MG/ML 2 ML VIAL IV PRN (16:30)
[2017-11-08 16:42] LABS: ALT/SGPT 41 U/L (12-78); AST/SGOT 22 U/L (15-37); BLOOD UREA NITROGEN 6 mg/dl (7-18); CALCIUM 9.2 mg/dl (8.5-10.1); CARBON DIOXIDE 24 mmol/L (21-32); GLUCOSE 125 mg/dl (70-99); LIPASE 145 U/L (73-393); POTASSIUM 3.4 mmol/L (3.5-5.1); SODIUM 139 mmol/L (136-145)
[2017-11-08 16:45] LABS: ALKALINE PHOSPHATASE 82 U/L (45-117); TOTAL PROTEIN 8.6 gm/dl (6.4-8.2)
--- NOTE | 2017-11-08 17:56 | EMERGENCY ROOM VISIT NOTE ---
History First contact with patient: 16:01 Chief Complaint: ABDOMINAL PAIN Stated Complaint: ABD PAIN History of Present Illness The patient is a 22 year old female who presents to the Emergency Room with complaints of right-sided abdominal pain has been severe for the last few days. The patient has a history of chronic, intermittent abdominal pain. She has a GI specialist. She has had an extensive workup performed. The patient reports a few episodes of nausea and vomiting over the last several days. No diarrhea. She has not taken anything for the pain. The patient saw her primary care physician today. She was told to come to the emergency department because they were concerned for a kidney stone. The patient does report dysuria. No fever or chills. There is a small amount of blood intermittently on the toilet paper when she wipes. There is no blood in the toilet bowl. Review of Systems 10 system review performed and negative unless noted in HPI or below Past Medical/Surgical History Medical Problems: (1) No Known Active Medical Problems Family History Patient reports no known family medical history. Social History Smoking Status: Never Smoker Alcohol Use: none Drug Use: none Marital Status: single Housing Status: lives with roommate Occupation Status: [employer] student Current/Historical Medications Scheduled PRN Acetaminophen (Tylenol), 1,000 MG PO BID PRN for Pain or Fever Physical Exam Vital Signs Date Time Temp Pulse Resp B/P (MAP) Pulse Ox O2 Delivery O2 Flow Rate FiO2 11/08/17 19:58 73 16 108/68 99 11/08/17 19:33 73 16 108/68 99 Room Air 11/08/17 17:52 74 16 113/71 98 Room Air 11/08/17 15:44 36.7 98 17 129/78 98 Room Air Physical Exam VITALS: Vitals are noted on the nurse's note and reviewed by myself. Vital signs stable. GENERAL: 22-year-old female, in no acute distress, nondiaphoretic, well- developed well-nourished. SKIN: The skin was without rashes, erythema, edema, or bruising. HEAD: Normocephalic atraumatic. MOUTH: Mucous membranes moist. NECK: Supple without nuchal rigidity. HEART: Regular rate and rhythm without murmurs gallops or rubs. LUNGS: Clear to auscultation bilaterally without wheezes, rales or rhonchi. No accessory muscle use. ABDOMEN: Positive bowel sounds x 4.Soft, diffuse subjective tenderness without any focal tenderness, guarding or rebound tenderness. Subjective right-sided CVA tenderness. MUSCULOSKELETAL: No muscle atrophy, erythema, or edema noted. Strength 5/5 throughout. NEURO: Patient was alert and oriented to person place and time. Normal sensation to touch. No focal neurological deficits. Medical Decision & Procedures ER Provider Diagnostic Interpretation: ct abd/pelvis 1. Bilateral nephrolithiasis. No ureteral stones. No hydronephrosis. 2. No bowel wall thickening or obstruction. 3. Normal appendix. 4. Colonic diverticulosis. Electronically signed by: Bobby Padilla M.D. 11/08/2017 6:50 PM Dictated Date/Time: 11/08/2017 6:42 PM The status of this report is Signed. Draft = Not yet reviewed or approved by Radiologist. Signed = Reviewed and approved by Radiologist Laboratory Results 11/08/17 16:09 Red Blood Count 4.54, Mean Corpuscular Volume 83.0, Mean Corpuscular Hemoglobin 28.0, Mean Corpuscular Hemoglobin Concent 33.7, Mean Platelet Volume 8.7, Neutrophils (%) (Auto) 54.8, Lymphocytes (%) (Auto) 33.9, Monocytes (%) (Auto) 7.3, Eosinophils (%) (Auto) 3.3, Basophils (%) (Auto) 0.6, Neutrophils # (Auto) 4.64, Lymphocytes # (Auto) 2.87, Monocytes # (Auto) 0.62, Eosinophils # (Auto) 0.28, Basophils # (Auto) 0.05 11/08/17 16:09 Test 11/08/17 16:09 11/08/17 17:15 White Blood Count 8.47 K/uL (4.8-10.8) Red Blood Count 4.54 M/uL (4.2-5.4) Hemoglobin 12.7 g/dL (12.0-16.0) Hematocrit 37.7 % (37-47) Mean Corpuscular Volume 83.0 fL (80-100) Mean Corpuscular Hemoglobin 28.0 pg (25-34) Mean Corpuscular Hemoglobin Concent 33.7 g/dl (32-36) Platelet Count 409 K/uL (130-400) Mean Platelet Volume 8.7 fL (7.4-10.4) Neutrophils (%) (Auto) 54.8 % Lymphocytes (%) (Auto) 33.9 % Monocytes (%) (Auto) 7.3 % Eosinophils (%) (Auto) 3.3 % Basophils (%) (Auto) 0.6 % Neutrophils # (Auto) 4.64 K/uL (1.4-6.5) Lymphocytes # (Auto) 2.87 K/uL (1.2-3.4) Monocytes # (Auto) 0.62 K/uL (0.11-0.59) Eosinophils # (Auto) 0.28 K/uL (0-0.5) Basophils # (Auto) 0.05 K/uL (0-0.2) RDW Standard Deviation 40.1 fL (36.4-46.3) RDW Coefficient of Variation 13.3 % (11.5-14.5) Immature Granulocyte % (Auto) 0.1 % Immature Granulocyte # (Auto) 0.01 K/uL (0.00-0.02) Anion Gap 9.0 mmol/L (3-11) Est Creatinine Clear Calc Drug Dose 129.2 ml/min Estimated GFR () > 150.0 Estimated GFR (Non- 131.2 BUN/Creatinine Ratio 10.5 (10-20) Calcium Level 9.2 mg/dl (8.5-10.1) Total Bilirubin 0.4 mg/dl (0.2-1) Aspartate Amino Transf (AST/SGOT) 22 U/L (15-37) Alanine Aminotransferase (ALT/SGPT) 41 U/L (12-78) Alkaline Phosphatase 82 U/L (45-117) Total Protein 8.6 gm/dl (6.4-8.2) Albumin 4.0 gm/dl (3.4-5.0) Globulin 4.6 gm/dl (2.5-4.0) Albumin/Globulin Ratio 0.9 (0.9-2) Lipase 145 U/L (73-393) Urine Color YELLOW Urine Appearance CLEAR (CLEAR) Urine pH 7.0 (4.5-7.5) Urine Specific [place] 1.016 (1.000-1.030) Urine Protein NEG (NEG) Urine Glucose (UA) NEG (NEG) Urine Ketones NEG (NEG) Urine Occult Blood NEG (NEG) Urine Nitrite NEG (NEG) Urine Bilirubin NEG (NEG) Urine Urobilinogen NEG (NEG) Urine Leukocyte Esterase NEG (NEG) Urine Test NEG (NEG) Medications Administered Medications (Trade) Dose Ordered Sig/Evi Route Start Time Stop Time Status Last Admin Dose Admin Sodium Chloride 500 ml @ 999 mls/hr Q31M STAT IV 11/08/17 16:21 11/08/17 16:51 DC 11/08/17 16:37 999 MLS/HR Ondansetron HCl (Zofran Inj) 4 mg Q2H PRN IV 11/08/17 16:30 11/08/17 20:11 DC 11/08/17 16:37 4 MG Ketorolac Tromethamine (Toradol Inj) 30 mg NOW STAT IV 11/08/17 16:21 11/08/17 16:23 DC 11/08/17 16:37 30 MG Acetaminophen/ Hydrocodone Bitart ([place] 5/325mg Home Pack) 1 homepack UD ONCE PO 11/08/17 19:45 11/08/17 19:46 DC 11/08/17 19:54 1 HOMEPACK ED Course Patient was seen and examined Vital signs including blood pressure were reviewed medications list was verified with patient Labs were obtained, and a saline lock was established The patient was medicated with Toradol 30 mg IV. She was hydrated with 500 cc of normal saline. Upon reevaluation, the patient was resting comfortably in bed. We discussed the results of her workup. She voiced understanding, and was comfortable being discharged home. She was given a home pack of [place] I reviewed discharge instructions the patient. They voiced understanding and had no further questions. Medical Decision Differential diagnosis: Chronic abdominal pain, choledocholithiasis, pancreatitis, ureteral stone, pyelonephritis, UTI, ovarian cyst, ectopic This patient is a 22-year-old female presents to the emergency department with acute on chronic abdominal pain and vomiting. On exam, she had no focal tenderness in the abdomen. She was nontoxic in appearance. Afebrile. Her labs revealed no leukocytosis. Renal function intact. Lipase is within normal limits. LFTs are also within normal limits. A CT of the abdomen and pelvis was performed in unchanged to prior study. Her urinalysis is clean. I believe this is likely an acute exacerbation of her chronic abdominal pain. The patient was tolerating liquids. I believe she is stable to be discharged home. She was given a home pack of [place], and instructed to follow-up with her primary care physician in addition to her GI specialist for further workup and treatment. She will return with any worsening symptoms such as fever, severe pain or persistent vomiting. This chart was completed in part utilizing [employer] Speech Voice Recognition software. Attempts were made to minimize the grammatical errors, random word insertions, pronoun errors and incomplete sentences. Any formal questions or concerns about the content, text or information contained within the body of this dictation should be directly addressed to the provider for clarification. Medication Reconcilliation Current Medication List: was personally reviewed by me Blood Pressure Screening Patient's blood pressure: Normal blood pressure Impression Primary Impression: Abdominal pain Departure Information Dispostion Home / Self-Care Condition GOOD Referrals Diann Brewster M.D. (PCP) Patient Instructions My [facility] Additional Instructions You were evaluated in the emergency department for abdominal pain. No changes were found on the CAT scan. Please continue medications as prescribed [place] 1-2 tabs every 4 hours for severe pain. Do not drink alcohol or drive while taking this medication. This may be taken with ibuprofen, but avoid Tylenol. You have been examined and treated today on an emergency basis only. This is not a substitute for, or an effort to provide, complete comprehensive medical care. It is impossible to recognize and treat all injuries or illnesses in a single emergency department visit. It is therefore important that you follow up closely with [facility], your PCP, and/or your specialist(s). Call as soon as possible for an appointment. Please do not hesitate to return to the emergency department with any new, concerning or worsening symptoms it has been a pleasure participating in your care School Instructions Return To School: 1 day
--- NOTE | 2017-11-08 18:51 | DIAGNOSTIC IMAGING REPORT ---
ABDOMEN AND PELVIS CT WITH ORAL CONTRAST CT DOSE: 329.77 mGy.cm HISTORY: Right-sided abdominal pain, hx of kidney stone TECHNIQUE: Multiaxial CT images of the abdomen and pelvis were performed following the use of oral contrast. A dose lowering technique was utilized adhering to the principles of ALARA. COMPARISON STUDY: Abdomen and pelvis CT 09/22/2017. FINDINGS: A 3.5 mm nodule within the right middle lobe on image 30. This remains unchanged. This favors a focus of inflammatory/infectious change given the patient's age. This is of doubtful clinical significance given its small size. No pneumoperitoneum. No pneumatosis. No fractures within the visualized osseous structures. Stable 1 cm hypodense lesion within the right hepatic lobe. The unenhanced spleen, adrenal glands, pancreas, and gallbladder are unremarkable. No retroperitoneal lymphadenopathy. There are 3 stones within the right kidney with the largest in the lower pole measuring 4 mm. There is also a 3 mm stone within the lower pole of the left kidney. No ureteral stones. No hydronephrosis. The bladder is unremarkable. The uterus and bilateral ovaries are within normal limits. No pelvic free fluid. Sigmoid diverticulosis. No bowel wall thickening or obstruction. Normal appendix. IMPRESSION: 1. Bilateral nephrolithiasis. No ureteral stones. No hydronephrosis. 2. No bowel wall thickening or obstruction. 3. Normal appendix. 4. Colonic diverticulosis. Electronically signed by: Bobby Padilla M.D. 11/08/2017 6:50 PM Dictated Date/Time: 11/08/2017 6:42 PM
[2017-11-08] MEDS ORDERED: NORCO 5/325MG HOME PACK PO ONE (19:45)
[2017-11-08 19:58] VITALS: BP 108/68; PULSE 73; O2SAT 99
== END 2017-11-08 19:56 | disposition home or self-care (01) ==
LOC: C.EDB 15:40 → C.EDC 19:56
DX: R10.9 Unspecified abdominal pain (principal)

== ENCOUNTER → 2017-11-28 | Outpatient (CLI) | payer OTHER ==
--- NOTE | 2017-11-28 12:44 | DIAGNOSTIC IMAGING REPORT ---
L-SPINE MIN 4 VIEWS ROUTINE CLINICAL HISTORY: Low back pain. Right flank pain. COMPARISON: None FINDINGS: Bilateral renal calculi measure up to 4 mm. Alignment of the lumbar spine is anatomic with the exception of straightening. Vertebral body heights are maintained. There is no fracture or suspicious lesion. Facet joints are intact. Disc spaces are preserved. IMPRESSION: 1. No lumbar spine fracture. 2. Preserved disc spaces. 3. Bilateral nephrolithiasis. Electronically signed by: Forest Brewster M.D. 11/28/2017 12:43 PM Dictated Date/Time: 11/28/2017 12:40 PM
--- NOTE | 2017-11-28 13:44 | DIAGNOSTIC IMAGING REPORT ---
THORACIC SPINE 3 VIEWS HISTORY: Back pain. Right flank pain. COMPARISON: None. FINDINGS: There is no fracture. No subluxation. Disc spaces are preserved. IMPRESSION: Normal thoracic spine. Electronically signed by: Bobby Padilla M.D. 11/28/2017 1:43 PM Dictated Date/Time: 11/28/2017 1:42 PM
== END | disposition home or self-care (01) ==
LOC: C.RAD 12:06
PROVIDERS: ATTEND Internal Medicine
DX: M54.5 Low back pain (principal); R10.9 Unspecified abdominal pain; N20.0 Calculus of kidney